=== PATIENT | male | born 1980 | race Caucasian/White ===

== ENCOUNTER 2023-12-14 13:23 | Emergency (ER) | payer MEDICARE ==
[~2023-12-14] VITALS: Ht 165.1 cm; Wt 74.8 kg
[2023-12-14 13:46] VITALS: PULSE 106; RESP 18; TEMP 98.4; O2SAT 100
== END 2023-12-14 15:46 | disposition home or self-care (01) ==
LOC: ER 14:47
DX: Z43.5 Encounter for attention to cystostomy (principal); I10 Essential (primary) hypertension; E03.9 Hypothyroidism, unspecified
CPT/HCPCS: 99282